=== PATIENT | female | born 1975 | race Caucasian/White ===

== ENCOUNTER 2016-07-23 10:13 | Emergency (ER) | payer OTHER ==
[~2016-07-23 10:13] MED LIST: CIPR-198 PO; DOCU-41 PO; HYDR-4003 PO; HYDR25SU31 RC; IBUP800T28 PO; METR500T19 PO
[2016-07-23 10:23] VITALS: BP 127/89; PULSE 98; RESP 16; O2SAT 100
--- NOTE | 2016-07-23 11:25 | ED.REPORT ---
HPI-Extremity Problem Upper Date of Service Jul 23, 2016 ED Provider: Jermaine Sandoval MD The patient is a 41 year old female who presents to the emergency department complaining of left shoulder pain. The patient tripped going up stairs last night, fell, and injured her left shoulder. She did not hit her head or lose consciousness. She immediately felt pain in the shoulder and her friend thought it looked "elevated." She has noticed some radiating pain into her back, neck, and down her left arm to her elbow. She initially noticed some tingling in her fingertips but this has resolved. She denies numbness or weakness. She took Ibuprofen with no relief. She is still able to move her left arm and shoulder but this causes increased pain. Nursing Notes Stated Complaint: POSS DISLOCATED SHOULDER Chief Complaint: Extremity Trauma Nursing Notes Reviewed: Yes Allergies: Coded Allergies: prednisone (Verified Allergy, Severe, Anaphylaxis, 07/23/16) All steroids Scheduled Ciprofloxacin (Ciprofloxacin) 500 Mg Tablet 500 MG PO BID Hydrocortisone Acetate (Anusol-Hc) 25 Mg Supp.rect 25 MG RC BID Metronidazole (Metronidazole) 500 Mg Tablet 500 MG PO TID Scheduled PRN Docusate Sodium (Colace) 100 Mg Capsule 20 MG PO DAILY PRN PRN For Constipation Hydrocodone-Acetaminophen 5-325 mg (Hydrocodone-Acetaminophen 5-325 mg) 1 Each Tablet 1-2 TABLET PO Q6H PRN PRN For Pain Ibuprofen (Ibuprofen) 800 Mg Tablet 800 MG PO TID PRN PRN For Pain Ibuprofen (Ibuprofen) 800 Mg Tablet 800 MG PO TID PRN PRN For Pain General Time Seen by MD: 10:30 Chief Complaint Shoulder injury left Hx Obtained From: Patient Arrived By: Walk-in Onset Occurred: Yesterday Symptom Duration: Since onset Caused by: Accidental, Fall on ground Location: : Shoulder left Quality: Painful Severity: Current: Moderate Severity: Maximum: Severe Pertinent Negative: Pt denies other symptoms Exacerbated by: Range of motion Relieved by: Immobilization Recent Healthcare: No recent doctor visit, No recent hospitalization Similar Sx Previous: No Past Medical History Past Medical History Notes: PCP Dr. Alphonso Israel Past Medical History HTN Hypothyroidism GERD Depression Anxiety Asthma Breast CA Thyroid CA [place]'s disease - on hydrocortisone 5 mg every morning, 2.5 mg in p.m. Osteoporosis Past Surgical History Thyroid surgery Wrist surgery Family History Noncontributory Smoking History Former Smoker Social History Other Social History: Good social support, Local resident Ambulatory Status Independent Review of Systems Musculoskeletal: Reports: Back pain, Extremity pain, Joint pain, Neck pain Skin: Reports Bruising Neurologic: Denies: Change LOC, Focal weakness, Headache, Numbness, Syncope Complete sys rev & neg: except as marked. Physical Exam Initial Vital Signs Vital Signs (First) Date Time Temp Pulse Resp B/P Pulse Ox O2 Delivery O2 Flow Rate FiO2 07/23/16 10:23 36.1 98 16 127/89 100 Room Air Initial VS: Reviewed Head / Eyes: Atraumatic, Normocephalic, PERRL ENT: Mucous membranes moist, Conjunctiva normal, No scleral icterus Neck: Supple, Non-tender, Full range of motion Respiratory: Breath sounds normal, Clear to auscultation, No respiratory distress Cardiovascular: Regular rate & rhythm, Heart sounds normal, Intact distal pulses Abdomen / GI: Soft, Non-tender, No guarding, No rebound, No distention Lymphatic: No lymphadenopathy Lower Extremities: Vascular intact, Neuro intact, No swelling, No tenderness Skin: Warm, Dry, No cyanosis Neurologic: Alert, Oriented, Nonfocal Psychiatric: Mood/affect normal, Behavior normal, Normal thought content General/Constitutional: Awake, Alert, Cooperative Upper Extremity / MS: Neurologic intact, Vascular intact Radial pulse intact. She has tenderness to her left AC joint. She has good range of motion but complains of increased pain. Interpretation & Diagnostics X-Ray Interpretation Xray Interpretation: No acute fractures seen. X-Ray Ordered: Shoulder left Interpretation / Wet Read by: Wet read ED physician Interpretation: Normal exam, No fracture/dislocation Re-Eval/Medical Decision Med Decision/Clinical Course 41-year-old female with GLF onto left shoulder. Complaining of left shoulder pain. Tender over left acromioclavicular joint. X-ray no fracture. Left acromioclavicular joint sprain. We will place in sling. Recommend range of motion exercises gentle. NSAIDs. Ice. Follow up primary doctor. Source of Hx: Old records, Friend Re-Evaluation/Progress : Time of Eval: 11:34 Re-Evaluation/Progress Note: Discussed results, diagnosis, and plan for discharge. Counseled Regarding: Diagnosis, Need for follow-up, When/why to return to ED Discharge & Departure Impression: Primary Impression: Injury of left shoulder Encounter type: initial encounter Qualified Code: S49.92XA - Unspecified injury of left shoulder and upper arm, initial encounter Additional Impression: Acromioclavicular sprain Encounter type: initial encounter Laterality: left Qualified Code: S43.52XA - Sprain of left acromioclavicular joint, initial encounter Disposition: Home Discharge Condition All VS Reviewed: Yes Condition: Stable Patient Instructions: Shoulder Sprain (ED) Additional Instructions: Thank you for entrusting us with your care today. There is no evidence of any fractures at this time. I believe you strained your acromioclavicular joint. Wear the sling for the next 1-2 weeks. Take Ibuprofen and Tylenol as needed for your pain. Most importantly you need to complete the range of motion exercises that we talked about a few times each day. Followup with your regular doctor at the end of this week or early next week for re-evaluation. Return to the emergency department for increased pain, weakness, numbness, or any other new or concerning symptoms. Referrals: Alphonso Israel MD (PCP) Scribe Attestation Portions of this note were transcribed by Karissa Mixon. I, Dr. Sandoval personally performed the history, physical exam and medical decision-making; I reviewed and confirmed the accuracy of the information in the transcribed note. Signed by: Berkley Castro, 07/23/2016 at 1305. copies to: Alphonso Israel MD, Ben M MD Jul 23, 2016 11:25 Karissa Mixon Jul 23, 2016 11:34
[2016-07-23] MEDS ORDERED: IBUP800T28 PO (11:37)
--- NOTE | 2016-07-23 15:49 | DRSVH ---
PROCEDURE: X-RAY LEFT SHOULDER, MINIMUM TWO VIEWS ([id number]) INDICATIONS: trauma TECHNIQUE: 3 views of the shoulder were acquired. COMPARISON: None. FINDINGS: Bones: No fractures or dislocations. No suspicious bony lesions. Visualized ribs appear intact. M ild joint narrowing with periarticular osteophyte formation Soft tissues: No suspicious soft tissue calcifications. IMPRESSION: No displaced fracture seen. If there is continued pain, followup exam or additional katherin ging such as MRI or CT could be performed for further assessment. Dictated by: Leobardo Wells RRA Interpreted: Saima Ruelas MD on 07/23/2016 at 15:48 Transcribed by: LEONARDO on 07/23/2016 at 15:49 Approved by: Saima Ruelas MD, PhD on 07/24/2016 at 11:03
== END 2016-07-23 11:46 | disposition home or self-care (01) ==
LOC: SED 10:13
DX: S43.52XA Sprain of left acromioclavicular joint, initial encounter (principal); W01.0XXA Fall on same level from slipping, tripping and stumbling without subsequent striking against object, initial encounter; Y93.89 Activity, other specified; Y92.89 Other specified places as the place of occurrence of the external cause; Y99.8 Other external cause status; J45.909 Unspecified asthma, uncomplicated; I10 Essential (primary) hypertension; K21.9 Gastro-esophageal reflux disease without esophagitis; E03.9 Hypothyroidism, unspecified; Z87.891 Personal history of nicotine dependence; Z88.8 Allergy status to other drugs, medicaments and biological substances